=== PATIENT | male | born 1950 | race Caucasian/White ===

== ENCOUNTER 2018-08-22 10:18 | Outpatient (CLI) | payer OTHER ==
--- NOTE | 2018-08-22 14:04 | HP ---
HISTORY OF PRESENT ILLNESS: Mr. Dima Bello is a very pleasant 68-year-old gentleman, who presents to the wound center for evaluation for hyperbaric oxygen therapy. 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 The patient was referred to the wound center by his oral surgeon for hyperbaric oxygen therapy before and after undergoing dental extractions. PAST MEDICAL HISTORY: 1. Lung carcinoma, status post chemotherapy and radiation therapy in 2016. 2. History of bladder carcinoma, status post surgery. 3. Arthritis. 4. Gout. PAST SURGICAL HISTORY: 1. Colon resection, J-pouch, and ostomy placement with subsequent reversal. 2. Ankle surgery. 3. Back surgery. MEDICATIONS: 1. Allopurinol. 2. Lipitor. 3. Fish oil. 4. Calcium supplement. 5. Aspirin 81 mg. 6. Multivitamin. 7. Vitamin B12. 8. Turmeric. ALLERGIES: PENICILLIN. SOCIAL HISTORY: Significant for tobacco use of up to 1-1/2 packs of cigarettes per day for 30 years. The patient states that he stopped smoking in 1994. Social history is also significant for the consumption of 4 beers per day for the past 35 years. FAMILY HISTORY: Family history significant for coronary artery disease. The patient's mother and brother were both diagnosed with coronary artery disease. Family history is also significant for diabetes mellitus. The patient's great grandmother was diagnosed with diabetes mellitus. PHYSICAL EXAMINATION: VITAL SIGNS: Temperature 98.3, pulse 69, and blood pressure 122/75. GENERAL: A 68-year-old gentleman, sitting on table in examination room, in no acute distress. HEENT: Normocephalic. NECK: No nuchal rigidity. CHEST: Clear to auscultation. CV: Regular rate and rhythm. ABDOMEN: Soft. EXTREMITIES: No clubbing or cyanosis. NEURO: Grossly nonfocal. ASSESSMENT AND PLAN: 1. Osteonecrosis of the jaw. The patient has been referred for evaluation for hyperbaric oxygen therapy prior to oral surgery, specifically dental extraction. The patient has been referred for 20 sessions prior to oral surgery with 10 sessions after oral surgery. The patient denies any history of congestive heart failure, seizures, crushing chest trauma, pneumothorax, blood disorders including hereditary spherocytosis, recent retinal surgery, or the administration of any chemotherapeutic agents contraindicating hyperbaric oxygen therapy. The patient understands the risks and benefits of hyperbaric oxygen therapy and wishes to proceed. The patient will receive treatment at 2.5 CASEY for a total of 90 minutes per session. The patient will begin hyperbaric oxygen therapy 1 week from today. 2. Lung carcinoma, status post chemotherapy and radiation therapy. 3. History of bladder carcinoma, status post surgery. 4. Arthritis. 5. Gout. Job ID: [id number]
== END 2018-08-22 10:19 | disposition home or self-care (01) ==
LOC: WCC 10:18
PROVIDERS: ATTEND Family Medicine
DX: M87.9 Osteonecrosis, unspecified (principal); C34.90 Malignant neoplasm of unspecified part of unspecified bronchus or lung; M19.90 Unspecified osteoarthritis, unspecified site; M10.9 Gout, unspecified
CPT/HCPCS: 99202; G0463

== ENCOUNTER 2018-08-29 14:36 | Outpatient (CLI) | payer OTHER | END 2018-08-29 14:37 | disposition home or self-care (01) | LOC: WCC 14:36 | PROVIDERS: ATTEND Family Medicine | DX: M27.2 Inflammatory conditions of jaws (principal) | CPT/HCPCS: G0277 ==

== ENCOUNTER 2018-08-30 13:33 | Outpatient (CLI) | payer OTHER | END 2018-08-30 13:34 | disposition home or self-care (01) | LOC: WCC 13:33 | PROVIDERS: ATTEND Family Medicine | DX: M27.2 Inflammatory conditions of jaws (principal) | CPT/HCPCS: 99183 ==

== ENCOUNTER 2018-08-31 11:27 | Outpatient (CLI) | payer OTHER | END 2018-08-31 11:28 | disposition home or self-care (01) | LOC: WCC 11:27 | PROVIDERS: ATTEND Family Medicine | DX: M27.2 Inflammatory conditions of jaws (principal) | CPT/HCPCS: 99183 ==

== ENCOUNTER 2018-09-01 11:32 | Outpatient (CLI) | payer OTHER | END 2018-09-01 11:33 | disposition home or self-care (01) | LOC: WCC 11:32 | PROVIDERS: ATTEND Family Medicine | DX: M27.2 Inflammatory conditions of jaws (principal) | CPT/HCPCS: 99183 ==

== ENCOUNTER 2018-09-12 11:50 | Outpatient (CLI) | payer OTHER | END 2018-09-12 11:51 | disposition home or self-care (01) | LOC: WCC 11:50 | PROVIDERS: ATTEND Family Medicine | DX: M27.2 Inflammatory conditions of jaws (principal) | CPT/HCPCS: 99183 ==

== ENCOUNTER 2018-09-13 11:01 | Outpatient (CLI) | payer OTHER | END 2018-09-13 11:02 | disposition home or self-care (01) | LOC: WCC 11:01 | PROVIDERS: ATTEND Family Medicine | DX: M27.2 Inflammatory conditions of jaws (principal) | CPT/HCPCS: 99183 ==

== ENCOUNTER 2018-09-19 13:41 | Outpatient (CLI) | payer OTHER | END 2018-09-19 13:42 | disposition home or self-care (01) | LOC: WCC 13:41 | PROVIDERS: ATTEND Family Medicine | DX: M27.2 Inflammatory conditions of jaws (principal) | CPT/HCPCS: 99183 ==

== ENCOUNTER 2018-09-20 11:22 | Outpatient (CLI) | payer OTHER | END 2018-09-20 11:23 | disposition home or self-care (01) | LOC: WCC 11:22 | PROVIDERS: ATTEND Family Medicine | DX: M27.2 Inflammatory conditions of jaws (principal) | CPT/HCPCS: 99183 ==

== ENCOUNTER 2018-09-21 10:05 | Outpatient (CLI) | payer OTHER | END 2018-09-21 10:06 | disposition home or self-care (01) | LOC: WCC 10:05 | PROVIDERS: ATTEND Family Medicine | DX: M27.2 Inflammatory conditions of jaws (principal) | CPT/HCPCS: 99183 ==

== ENCOUNTER 2018-09-26 11:00 | Outpatient (CLI) | payer OTHER | END 2018-09-26 11:01 | disposition home or self-care (01) | LOC: WCC 11:00 | PROVIDERS: ATTEND Family Medicine | DX: M27.2 Inflammatory conditions of jaws (principal) | CPT/HCPCS: 99183 ==

== ENCOUNTER 2018-09-28 10:17 | Outpatient (CLI) | payer OTHER | END 2018-09-28 10:18 | disposition home or self-care (01) | LOC: WCC 10:17 | PROVIDERS: ATTEND Family Medicine | DX: M27.2 Inflammatory conditions of jaws (principal) | CPT/HCPCS: 99183 ==

== ENCOUNTER 2018-09-29 11:48 | Outpatient (CLI) | payer OTHER | END 2018-09-29 11:49 | disposition home or self-care (01) | LOC: WCC 11:48 | PROVIDERS: ATTEND Family Medicine | DX: M27.2 Inflammatory conditions of jaws (principal) | CPT/HCPCS: 99183 ==

== ENCOUNTER 2018-10-03 10:32 | Outpatient (CLI) | payer OTHER | END 2018-10-03 10:33 | disposition home or self-care (01) | LOC: WCC 10:32 | PROVIDERS: ATTEND Family Medicine | DX: M27.2 Inflammatory conditions of jaws (principal) | CPT/HCPCS: 99183 ==

== ENCOUNTER 2018-10-04 10:07 | Outpatient (CLI) | payer OTHER | END 2018-10-04 10:08 | disposition home or self-care (01) | LOC: WCC 10:07 | PROVIDERS: ATTEND Family Medicine | DX: M27.2 Inflammatory conditions of jaws (principal) | CPT/HCPCS: 99183 ==

== ENCOUNTER 2018-10-05 10:09 | Outpatient (CLI) | payer OTHER | END 2018-10-05 10:10 | disposition home or self-care (01) | LOC: WCC 10:09 | PROVIDERS: ATTEND Family Medicine | DX: M27.2 Inflammatory conditions of jaws (principal) | CPT/HCPCS: 99183 ==

== ENCOUNTER 2018-10-06 16:13 | Outpatient (CLI) | payer OTHER | END 2018-10-06 16:14 | disposition home or self-care (01) | LOC: WCC 16:13 | PROVIDERS: ATTEND Family Medicine | DX: M27.2 Inflammatory conditions of jaws (principal) | CPT/HCPCS: 99183 ==

== ENCOUNTER 2018-10-10 14:15 | Outpatient (CLI) | payer OTHER | END 2018-10-10 14:16 | disposition home or self-care (01) | LOC: WCC 14:15 | PROVIDERS: ATTEND Family Medicine | DX: M27.2 Inflammatory conditions of jaws (principal) | CPT/HCPCS: 99183 ==

== ENCOUNTER 2018-10-12 11:32 | Outpatient (CLI) | payer OTHER | END 2018-10-12 11:33 | disposition home or self-care (01) | LOC: WCC 11:32 | PROVIDERS: ATTEND Family Medicine | DX: M27.2 Inflammatory conditions of jaws (principal) | CPT/HCPCS: 99183 ==

== ENCOUNTER 2018-10-13 10:15 | Outpatient (CLI) | payer OTHER | END 2018-10-13 10:16 | disposition home or self-care (01) | LOC: WCC 10:15 | PROVIDERS: ATTEND Family Medicine | DX: M27.2 Inflammatory conditions of jaws (principal) | CPT/HCPCS: 99183 ==

== ENCOUNTER 2019-01-05 14:05 | Outpatient (CLI) | payer OTHER ==
--- NOTE | 2019-01-05 15:12 | PRG ---
DATE OF SERVICE: 01/05/2019 HISTORY: Mr. Dima Bello is a very pleasant 68-year-old gentleman, who presents to the [facility]ound Center for the resumption of hyperbaric oxygen therapy. The patient's medical history significant for osteoradionecrosis, the patient was referred to the Wound Center by his oral surgeon for hyperbaric oxygen therapy before and after undergoing dental extractions. The patient underwent 20 treatments prior to undergoing dental extractions. The patient now is to receive 10 treatments postoperatively. PHYSICAL EXAMINATION: VITAL SIGNS: Temperature 97.8, pulse 66, respirations 19, and blood pressure 121/70. HEENT: Sutures are in place following the patient's dental extractions. Ecchymosis is present over the left side of the face. ASSESSMENT AND PLAN: 1. Osteoradionecrosis of the jaw. The patient was referred for hyperbaric oxygen therapy prior to dental extractions. The patient completed 20 sessions prior to oral surgery. The patient is now to receive 10 sessions postoperatively. The patient denies any new onset of congestive heart failure, seizures. He denies any crushing chest trauma, pneumothorax, blood disorders including hereditary spherocytosis, recent retinal surgery, or the administration of any chemotherapeutic agents contraindicating hyperbaric oxygen therapy. The patient will begin to receive the last 10 sessions of hyperbaric oxygen therapy today. The patient will receive treatment at 2.5 CASEY for a total of 90 minutes per session. 2. Lung carcinoma, status post chemotherapy and radiation therapy. 3. History of bladder carcinoma, status post surgery. 4. Arthritis. 5. Gout. Job ID: [id number]
== END 2019-01-05 14:06 | disposition home or self-care (01) ==
LOC: WCC 14:05
PROVIDERS: ATTEND Family Medicine
DX: M27.2 Inflammatory conditions of jaws (principal); C34.90 Malignant neoplasm of unspecified part of unspecified bronchus or lung; M19.90 Unspecified osteoarthritis, unspecified site; M10.9 Gout, unspecified
CPT/HCPCS: 99183

== ENCOUNTER 2019-01-09 13:27 | Outpatient (CLI) | payer OTHER | END 2019-01-09 13:28 | disposition home or self-care (01) | LOC: WCC 13:27 | PROVIDERS: ATTEND Family Medicine | DX: M27.2 Inflammatory conditions of jaws (principal) | CPT/HCPCS: 99183 ==

== ENCOUNTER 2019-01-10 13:01 | Outpatient (CLI) | payer OTHER | END 2019-01-10 13:02 | disposition home or self-care (01) | LOC: WCC 13:01 | PROVIDERS: ATTEND Family Medicine | DX: M27.2 Inflammatory conditions of jaws (principal) | CPT/HCPCS: 99183 ==

== ENCOUNTER 2019-01-11 08:05 | Outpatient (CLI) | payer OTHER | END 2019-01-11 08:06 | disposition home or self-care (01) | LOC: WCC 08:05 | PROVIDERS: ATTEND Family Medicine | DX: M27.2 Inflammatory conditions of jaws (principal) | CPT/HCPCS: 99183 ==

== ENCOUNTER 2019-01-12 13:18 | Outpatient (CLI) | payer OTHER | END 2019-01-12 13:19 | disposition home or self-care (01) | LOC: WCC 13:18 | PROVIDERS: ATTEND Family Medicine | DX: M27.2 Inflammatory conditions of jaws (principal) | CPT/HCPCS: 99183 ==

== ENCOUNTER 2019-01-16 08:34 | Outpatient (CLI) | payer OTHER | END 2019-01-16 08:35 | disposition home or self-care (01) | LOC: WCC 08:34 | PROVIDERS: ATTEND Family Medicine | DX: M27.2 Inflammatory conditions of jaws (principal) | CPT/HCPCS: 99183 ==

== ENCOUNTER 2019-01-18 13:16 | Outpatient (CLI) | payer OTHER | END 2019-01-18 13:17 | disposition home or self-care (01) | LOC: WCC 13:16 | PROVIDERS: ATTEND Family Medicine | DX: M27.2 Inflammatory conditions of jaws (principal) | CPT/HCPCS: G0277 ==

== ENCOUNTER 2019-01-19 08:53 | Outpatient (CLI) | payer OTHER | END 2019-01-19 08:54 | disposition home or self-care (01) | LOC: WCC 08:53 | PROVIDERS: ATTEND Family Medicine | DX: M27.2 Inflammatory conditions of jaws (principal) | CPT/HCPCS: 99183 ==

== ENCOUNTER 2019-01-24 10:57 | Outpatient (CLI) | payer OTHER | END 2019-01-24 10:58 | disposition home or self-care (01) | LOC: WCC 10:57 | PROVIDERS: ATTEND Family Medicine | DX: M27.2 Inflammatory conditions of jaws (principal) | CPT/HCPCS: 99183 ==

== ENCOUNTER 2019-01-25 10:50 | Outpatient (CLI) | payer OTHER | END 2019-01-25 10:51 | disposition home or self-care (01) | LOC: WCC 10:50 | PROVIDERS: ATTEND Family Medicine | DX: M27.2 Inflammatory conditions of jaws (principal) | CPT/HCPCS: G0277 ==